=== PATIENT | male | born 1980 | race Hispanic/Latino ===

== ENCOUNTER 2019-11-25 20:18 | Emergency (ER) | payer SELFPAY ==
--- NOTE | 2019-11-25 21:34 | Event Note ---
ED Screening Note Date of service: 11/25/19 Time: 21:31 ED Screening Note: pt is 39 y/o male presents for detox, racing thought, flight of idea, AH, pos drug use. This initial assessment/diagnostic orders/clinical plan/treatment(s) is/are subject to change based on patients health status, clinical progression and re- assessment by fellow clinical providers in the ED. Further treatment and workup at subsequent clinical providers discretion. Patient/guardian urged not to elope from the ED as their condition may be serious if not clinically assessed and managed. Initial orders include: pysch protocol. main side
[2019-11-25 22:38] LABS: Basophils # (Auto) 0.1 K/mm3 (0.0-0.1); Eosinophils # (Auto) 0.2 K/mm3 (0.0-0.4); Eosinophils % (Auto) 2.4 % (0.0-4.3); Hematocrit 40.1 % (35.5-45.6); Hemoglobin 13.3 gm/dl (11.8-15.2); Lymphocytes # (Auto) 3.5 K/mm3 (1.2-5.4); Lymphocytes % (Auto) 40.2 % (13.4-35.0); Mean Corpuscular HGB Conc 33 % (32-34); Mean Corpuscular Volume 94 fl (84-94); Monocytes # (Auto) 0.8 K/mm3 (0.0-0.8); Monocytes % (Auto) 9.6 % (0.0-7.3); Platelet Count 282 K/mm3 (140-440); Red Blood Count 4.25 M/mm3 (3.65-5.03); Red Cell Distribution Width 13.7 % (13.2-15.2)
[2019-11-25 22:53] LABS: Alanine Aminotransferase 9 units/L (7-56); Albumin 4.2 g/dL (3.9-5); BUN/Creatinine Ratio 19; Blood Urea Nitrogen 15 mg/dL (9-20); Hemolysis Index 54
--- NOTE | 2019-11-25 22:53 | Emergency Department Report ---
ED General Adult HPI - General Chief complaint: Psych Stated complaint: MH EVAL/HALLUCINATIONS Time Seen by Provider: 11/25/19 22:10 Source: patient Mode of arrival: Ambulatory Limitations: No Limitations - History of Present Illness Initial comments: The patient presents to the emergency department with a chief complaint of racing thoughts. Patient states she has a history of bipolar and he's hearing voices telling him to do drugs. Patient states he also wants detox from cocaine. Patient denies homicidal suicidal ideation. -: unknown Severity scale (0 -10): 0 Improves with: none Worsens with: none Associated Symptoms: denies other symptoms Treatments Prior to Arrival: none - Related Data Home Medications Medication Instructions Recorded Confirmed Last Taken No Known Home Medications [No 11/26/19 11/26/19 Unknown Reported Home Medications] Allergies Allergy/AdvReac Type Severity Reaction Status Date / Time No Known Allergies Allergy Unverified 11/25/19 21:34 ED Review of Systems ROS: Stated complaint: MH EVAL/HALLUCINATIONS Other details as noted in HPI Constitutional: denies: chills, fever Eyes: denies: eye pain, eye discharge, vision change ENT: denies: ear pain, throat pain Respiratory: denies: cough, shortness of breath, wheezing Cardiovascular: denies: chest pain, palpitations Endocrine: no symptoms reported Gastrointestinal: denies: abdominal pain, nausea, diarrhea Genitourinary: denies: urgency, dysuria Musculoskeletal: denies: back pain, joint swelling, arthralgia Skin: denies: rash, lesions Neurological: denies: headache, weakness, paresthesias Psychiatric: auditory hallucinations. denies: anxiety, depression, homicidal thoughts, suicidal thoughts Hematological/Lymphatic: denies: easy bleeding, easy bruising ED Past Medical Hx - Past Medical History Previous Medical History?: Yes Hx Psychiatric Treatment: Yes (Bipolar, Chemical Imbalance) - Surgical History Past Surgical History?: Yes Additional Surgical History: Tonsillectomy - Social History Smoking Status: Current Every Day Smoker Substance Use Type: Alcohol, Cocaine, Heroin, Marijuana, Methamphetamines - Medications Home Medications: Home Medications Medication Instructions Recorded Confirmed Last Taken Type No Known Home Medications [No 11/26/19 11/26/19 Unknown History Reported Home Medications] ED Physical Exam - General Limitations: No Limitations General appearance: alert, in no apparent distress, other (tangential speech and flight of ideas) - Head Head exam: Present: atraumatic, normocephalic - Eye Eye exam: Present: normal appearance - ENT ENT exam: Present: mucous membranes moist - Neck Neck exam: Present: normal inspection - Respiratory Respiratory exam: Present: normal lung sounds bilaterally. Absent: respiratory distress - Cardiovascular Cardiovascular Exam: Present: regular rate, normal rhythm. Absent: systolic murmur, diastolic murmur, rubs, gallop - GI/Abdominal GI/Abdominal exam: Present: soft, normal bowel sounds. Absent: distended, tenderness - Rectal Rectal exam: Present: deferred - Extremities Exam Extremities exam: Present: normal inspection - Back Exam Back exam: Present: normal inspection - Neurological Exam Neurological exam: Present: alert, oriented X3, CN II-XII intact. Absent: motor sensory deficit - Psychiatric Psychiatric exam: Present: normal affect, normal mood - Skin Skin exam: Present: warm, dry, intact, normal color. Absent: rash ED Course Vital Signs 11/25/19 11/26/19 20:58 02:14 Temperature 98.0 F 98.9 F Pulse Rate 94 H 93 H Respiratory 18 18 Rate Blood Pressure 134/54 Blood Pressure 100/68 [Left] O2 Sat by Pulse 100 96 Oximetry ED Medical Decision Making - Lab Data Result diagrams: 11/25/19 21:52 11/25/19 21:52 Lab Results 11/25/19 11/25/19 11/25/19 Range/Units 21:52 21:52 21:52 WBC 8.6 (4.5-11.0) K/mm3 RBC 4.25 (3.65-5.03) M/mm3 Hgb 13.3 (11.8-15.2) gm/dl Hct 40.1 (35.5-45.6) % MCV 94 (84-94) fl MCH 31 (28-32) pg MCHC 33 (32-34) % RDW 13.7 (13.2-15.2) % Plt Count 282 (140-440) K/mm3 Lymph % (Auto) 40.2 H (13.4-35.0) % [place] % (Auto) 9.6 H (0.0-7.3) % Eos % (Auto) 2.4 (0.0-4.3) % Baso % (Auto) 1.0 (0.0-1.8) % Lymph # 3.5 (1.2-5.4) K/mm3 [place] # 0.8 (0.0-0.8) K/mm3 Eos # 0.2 (0.0-0.4) K/mm3 Baso # 0.1 (0.0-0.1) K/mm3 Seg Neutrophils % 46.8 (40.0-70.0) % Seg Neutrophils # 4.0 (1.8-7.7) K/mm3 Sodium 135 L (137-145) mmol/L Potassium 4.7 (3.6-5.0) mmol/L Chloride 100.7 (98-107) mmol/L Carbon Dioxide 25 (22-30) mmol/L Anion Gap 14 mmol/L BUN 15 (9-20) mg/dL Creatinine 0.8 (0.8-1.5) mg/dL Estimated GFR > 60 ml/min BUN/Creatinine Ratio 19 % Glucose 109 H (75-100) mg/dL Calcium 9.0 (8.4-10.2) mg/dL Total Bilirubin 0.20 (0.1-1.2) mg/dL AST 17 (5-40) units/L ALT 9 (7-56) units/L Alkaline Phosphatase 68 (35-129) units/L Total Protein 6.7 (6.3-8.2) g/dL Albumin 4.2 (3.9-5) g/dL Albumin/Globulin Ratio 1.7 % Urine Color (Yellow) Urine Turbidity (Clear) Urine pH (5.0-7.0) Ur Specific [place] (1.003-1.030) Urine Protein (Negative) mg/dL Urine Glucose (UA) (Negative) mg/dL Urine Ketones (Negative) mg/dL Urine Blood (Negative) Urine Nitrite (Negative) Urine Bilirubin (Negative) Urine Urobilinogen (<2.0) mg/dL Ur Leukocyte Esterase (Negative) Urine WBC (Auto) Urine RBC (Auto) (0.0-6.0) /HPF Urine Mucus /HPF Salicylates < 0.3 L (2.8-20.0) mg/dL Urine Opiates Screen Urine Methadone Screen Acetaminophen (10.0-30.0) ug/mL Ur Barbiturates Screen Ur Phencyclidine Scrn Ur Amphetamines Screen U Benzodiazepines Scrn Urine Cocaine Screen U Marijuana (THC) Screen Drugs of Abuse Note Plasma/Serum Alcohol (0-0.07) % 11/25/19 11/25/19 11/25/19 Range/Units 21:52 21:52 22:10 WBC (4.5-11.0) K/mm3 RBC (3.65-5.03) M/mm3 Hgb (11.8-15.2) gm/dl Hct (35.5-45.6) % MCV (84-94) fl MCH (28-32) pg MCHC (32-34) % RDW (13.2-15.2) % Plt Count (140-440) K/mm3 Lymph % (Auto) (13.4-35.0) % [place] % (Auto) (0.0-7.3) % Eos % (Auto) (0.0-4.3) % Baso % (Auto) (0.0-1.8) % Lymph # (1.2-5.4) K/mm3 [place] # (0.0-0.8) K/mm3 Eos # (0.0-0.4) K/mm3 Baso # (0.0-0.1) K/mm3 Seg Neutrophils % (40.0-70.0) % Seg Neutrophils # (1.8-7.7) K/mm3 Sodium (137-145) mmol/L Potassium (3.6-5.0) mmol/L Chloride (98-107) mmol/L Carbon Dioxide (22-30) mmol/L Anion Gap mmol/L BUN (9-20) mg/dL Creatinine (0.8-1.5) mg/dL Estimated GFR ml/min BUN/Creatinine Ratio % Glucose (75-100) mg/dL Calcium (8.4-10.2) mg/dL Total Bilirubin (0.1-1.2) mg/dL AST (5-40) units/L ALT (7-56) units/L Alkaline Phosphatase (35-129) units/L Total Protein (6.3-8.2) g/dL Albumin (3.9-5) g/dL Albumin/Globulin Ratio % Urine Color Yellow (Yellow) Urine Turbidity Clear (Clear) Urine pH 6.0 (5.0-7.0) Ur Specific [place] 1.012 (1.003-1.030) Urine Protein <15 mg/dl (Negative) mg/dL Urine Glucose (UA) Neg (Negative) mg/dL Urine Ketones Neg (Negative) mg/dL Urine Blood Neg (Negative) Urine Nitrite Neg (Negative) Urine Bilirubin Neg (Negative) Urine Urobilinogen < 2.0 (<2.0) mg/dL Ur Leukocyte Esterase Neg (Negative) Urine WBC (Auto) Not Reportable Urine RBC (Auto) 1.0 (0.0-6.0) /HPF Urine Mucus Few /HPF Salicylates (2.8-20.0) mg/dL Urine Opiates Screen Urine Methadone Screen Acetaminophen < 5.0 L (10.0-30.0) ug/mL Ur Barbiturates Screen Ur Phencyclidine Scrn Ur Amphetamines Screen U Benzodiazepines Scrn Urine Cocaine Screen U Marijuana (THC) Screen Drugs of Abuse Note Plasma/Serum Alcohol < 0.01 (0-0.07) % 11/25/19 Range/Units 22:10 WBC (4.5-11.0) K/mm3 RBC (3.65-5.03) M/mm3 Hgb (11.8-15.2) gm/dl Hct (35.5-45.6) % MCV (84-94) fl MCH (28-32) pg MCHC (32-34) % RDW (13.2-15.2) % Plt Count (140-440) K/mm3 Lymph % (Auto) (13.4-35.0) % [place] % (Auto) (0.0-7.3) % Eos % (Auto) (0.0-4.3) % Baso % (Auto) (0.0-1.8) % Lymph # (1.2-5.4) K/mm3 [place] # (0.0-0.8) K/mm3 Eos # (0.0-0.4) K/mm3 Baso # (0.0-0.1) K/mm3 Seg Neutrophils % (40.0-70.0) % Seg Neutrophils # (1.8-7.7) K/mm3 Sodium (137-145) mmol/L Potassium (3.6-5.0) mmol/L Chloride (98-107) mmol/L Carbon Dioxide (22-30) mmol/L Anion Gap mmol/L BUN (9-20) mg/dL Creatinine (0.8-1.5) mg/dL Estimated GFR ml/min BUN/Creatinine Ratio % Glucose (75-100) mg/dL Calcium (8.4-10.2) mg/dL Total Bilirubin (0.1-1.2) mg/dL AST (5-40) units/L ALT (7-56) units/L Alkaline Phosphatase (35-129) units/L Total Protein (6.3-8.2) g/dL Albumin (3.9-5) g/dL Albumin/Globulin Ratio % Urine Color (Yellow) Urine Turbidity (Clear) Urine pH (5.0-7.0) Ur Specific [place] (1.003-1.030) Urine Protein (Negative) mg/dL Urine Glucose (UA) (Negative) mg/dL Urine Ketones (Negative) mg/dL Urine Blood (Negative) Urine Nitrite (Negative) Urine Bilirubin (Negative) Urine Urobilinogen (<2.0) mg/dL Ur Leukocyte Esterase (Negative) Urine WBC (Auto) Urine RBC (Auto) (0.0-6.0) /HPF Urine Mucus /HPF Salicylates (2.8-20.0) mg/dL Urine Opiates Screen Presumptive negative Urine Methadone Screen Presumptive negative Acetaminophen (10.0-30.0) ug/mL Ur Barbiturates Screen Presumptive negative Ur Phencyclidine Scrn Presumptive negative Ur Amphetamines Screen Presumptive negative U Benzodiazepines Scrn Presumptive negative Urine Cocaine Screen Presumptive negative U Marijuana (THC) Screen Presumptive negative Drugs of Abuse Note Disclamer Plasma/Serum Alcohol (0-0.07) % - Medical Decision Making Medically cleared Awaiting mental health evaluation Critical care attestation.: If time is entered above; I have spent that time in minutes in the direct care of this critically ill patient, excluding procedure time. ED Disposition Clinical Impression: Auditory hallucinations Disposition: [id number]/TX-65 PSY HOSP/PSY UNIT Is pt being admited?: No Does the pt Need Aspirin: No Condition: Stable
[2019-11-25 23:08] LABS: Bilirubin,Urine NEG (Negative); Blood,Urine NEG (Negative); Color,Urine Yellow (Yellow); Mucus,Urine FEW /HPF; Protein,Urine <15 mg/dL mg/dL (Negative); Urobilinogen,Urine < 2.0 mg/dL (<2.0)
[2019-11-25 23:14] LABS: Amphetamine Screen,Urine PRESUMPTIVE NEGATIVE; Benzodiazepines Screen,Urine PRESUMPTIVE NEGATIVE; Cannabinoid Screen,Urine PRESUMPTIVE NEGATIVE; Cocaine Screen,Urine PRESUMPTIVE NEGATIVE; Methadone Screen,Urine PRESUMPTIVE NEGATIVE; Opiate Screen,Urine PRESUMPTIVE NEGATIVE
[2019-11-26] MEDS ORDERED: NICOTINE 21 MG/24 HR PATCH TD ONE (10:07)
[2019-11-26] MEDS ORDERED: LORazepam 1 MG TAB PO ONE (11:16)
[2019-11-26] MEDS ORDERED: IBUPROFEN 800 MG TAB PO ONE (14:21)
[2019-11-26] MEDS ORDERED: hydrOXYzine PAMOATE 25 MG CAP PO ONE (17:02)
[2019-11-26] MEDS ORDERED: ZIPRASIDONE MESYLATE 20 MG VIAL IM ONE (17:43)
[2019-11-27] MEDS ORDERED: ZIPRASIDONE MESYLATE 20 MG VIAL IM ONE ×4 (10:04→19:14)
--- NOTE | 2019-11-27 15:45 | Consultation ---
History of Present Illness - Reason for Consult Consult date: 11/27/19 Reason for consult: psychiatric assessment - Chief Complaint Chief complaint: Mr. Avilez is a 39-year-old male the patient is alert and oriented 2. The patient is disheveled. Eye contact Piercing. the patient stated he [facility] because he was hearing voices telling him to hurt himself. He then stated I was trying to get people out the [facility].when asked what intermediate the patient reported "here". The patient speech is fast and loquacious.the patient denies suicidal or homicidal ideations. The patient reports hearing voices, he reported the voices just talking. The patient then states, "I would like to go back to the hospital where joce paredes was".The patient is noted with flight of ideas and word salad. Attention and concentration impaired.patient reported that he hasn't taken medication for years he has not seen a psychiatric doctor in years. When asked about depression patient stated "I can kill my eyes". PAST PSYCHIATRIC HISTORY: Diagnoses: delusion and psychosis Suicide attempts or Self-harm behavior:denies Prior psychiatric hospitalizations: yes Substance Abuse history:yes Previous psychiatric medications tried: Depakote, clonazepam Outpatient treatment:yes PAST MEDICAL HISTORY: Family Psychiatric History grand-father SOCIAL HISTORY Marital Status: single Living Arrangements:family Employment Status: unemployed Access to guns/weapons: no Education: 11th History of Abuse: denies Legal History:yes REVIEW OF SYSTEMS Constitutional: Negative for weight loss ENT: Negative for stridor Respiratory: Negative for cough or hemoptysis All other systems reviewed and are negative MSE Appearance: disheved, piercing eye contact Behavior: tense and cooperative. Mood: "ok" Affect: blunted Thought Process: Illogical shifting between unrelated topics Speech: pressured Thought Content Harmfulness Denies SI/HI Hallucinations: patient denies Delusions: grandiose Consciousness: alert. Cognition/Memory: normal. Insight/Judgment: Limited. RECOMMENDATIONS MEDICATIONS: start depakote 250mg bid start risperidone 1mg bid start trazadone 50mg prn qhs start haldol 5mg prn agitation Risks, benefits and alternatives of medications discussed with the patient, questions answered and consent obtained from patient. PSYCHOTHERAPY: Supportive psychotherapy provided MEDICAL: Per primary team DELIRIUM PRECAUTIONS: Please re-orient patient frequently, keep lights on during the day, and minimize benzodiazepines and opiates as these medications could worsen patient's confusion. 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: DISPOSITION: The patient required inpatient hospitalization for safety and stabilization of symptoms LEGAL STATUS:1013 FOLLOW-UP: Will follow Medications and Allergies Allergies Allergy/AdvReac Type Severity Reaction Status Date / Time No Known Allergies Allergy Unverified 11/25/19 21:34 Home Medications Medication Instructions Recorded Confirmed Last Taken Type No Known Home Medications [No 11/26/19 11/26/19 Unknown History Reported Home Medications] Mental Status Exam - Vital signs Last Vital Signs Temp 98.0 F 11/27/19 15:07 Pulse 102 H 11/27/19 15:07 Resp 20 11/27/19 15:07 BP 140/72 11/27/19 15:07 Pulse Ox 98 11/27/19 15:07 Results Result Diagrams: 11/25/19 21:52 11/25/19 21:52 All other labs normal.
[2019-11-27] MEDS ORDERED: HALOPERIDOL LACTATE 5 MG/1 ML INJ IM PRN (16:22)
[2019-11-27] MEDS: traZODone 50 MG TAB PO SCH (22:20)
[2019-11-27] MEDS: DIVALPROEX DR 250 MG TAB PO SCH (22:20)
[2019-11-27] MEDS: risperiDONE 1 MG TAB PO SCH (22:20)
[2019-11-28] MEDS: DIVALPROEX DR 250 MG TAB PO SCH ×2 (10:49→22:28)
[2019-11-28] MEDS: risperiDONE 1 MG TAB PO SCH ×2 (10:49→22:28)
--- NOTE | 2019-11-28 14:19 | Progress Note ---
Subjective - Reason for Consult Consult date: 11/28/19 Reason for consult: psychiatric assessment - Chief Complaint Chief complaint: I interviewed the patient this morning. Medical records reviewed and patient's progress was discussed with unit staff. per chart awake standing on the front door, constant movements noted. no signs of respiratory distress In my interview with the patient this morning, the patient was asleep but easily aroused. The patient is alert and oriented 2. The patient is disheveled. The patient maintain minimal eye contact. The patient noted drowsy. The patient denies suicidal or homicidal ideation the patient continues to hear voices of people just talking. The patient denies visual hallucination. The patient remain disorganized and confused. Patient still noted with flight of ideas and word salad, attention, concentration limited. REVIEW OF SYSTEMS Constitutional: Negative for weight loss ENT: Negative for stridor Respiratory: Negative for cough or hemoptysis All other systems reviewed and are negative MSE Appearance: disheved, limited eye contact Behavior: calm and cooperative. Mood: "ok" Affect: blunted Thought Process: Illogical shifting between unrelated topics Speech: pressured Thought Content Harmfulness Denies SI/HI Hallucinations: patient denies Delusions: grandiose Consciousness: alert. Cognition/Memory: normal. Insight/Judgment: Limited. RECOMMENDATIONS MEDICATIONS: continue depakote 250mg bid risperidone 1mg bid trazadone 50mg prn qhs haldol 5mg prn agitation Risks, benefits and alternatives of medications discussed with the patient, questions answered and consent obtained from patient. PSYCHOTHERAPY: Supportive psychotherapy provided MEDICAL: Per primary team DELIRIUM PRECAUTIONS: Please re-orient patient frequently, keep lights on during the day, and minimize benzodiazepines and opiates as these medications could worsen patient's confusion. 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
[2019-11-28] MEDS: traZODone 50 MG TAB PO SCH (22:28)
[2019-11-29] MEDS: risperiDONE 1 MG TAB PO SCH ×2 (11:00→22:00)
[2019-11-29] MEDS: DIVALPROEX DR 250 MG TAB PO SCH ×2 (11:00→22:00)
--- NOTE | 2019-11-29 14:26 | Progress Note ---
Subjective - Reason for Consult Consult date: 11/29/19 Reason for consult: psychiatric assessment - Chief Complaint Chief complaint: I interviewed the patient this morning. Medical records reviewed and patient's progress was discussed with unit staff. per chart Received report from Toña RN, pt resting quietly on recliner, resp even and non labored, no acute distress noted, no behaviors or s/s of self harm noted, ambulates to restroom without difficulty In my interview with the patient this morning, the patient is alert and oriented x1. The patient denies suicidal or homicidal ideation the patient reports that he does hear voices here and there. He does report depression, patient stated I'm supposed to be a doctor at [facility], and then need to be discharged to go there. 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 The patient then start whispering and saying "I don't want anyone to know but I got [place] [employer] [place] and I work with the [employer]".The patient remained disorganized and confused REVIEW OF SYSTEMS Constitutional: Negative for weight loss ENT: Negative for stridor Respiratory: Negative for cough or hemoptysis All other systems reviewed and are negative MSE Appearance: disheved, limited eye contact Behavior: calm and cooperative. Mood: "ok" Affect: blunted Thought Process: Illogical shifting between unrelated topics Speech: pressured Thought Content Harmfulness Denies SI/HI Hallucinations: patient denies Delusions: grandiose Consciousness: alert. Cognition/Memory: impaired Insight/Judgment: Limited. RECOMMENDATIONS MEDICATIONS: continue depakote 250mg bid risperidone 1mg bid trazadone 50mg prn qhs haldol 5mg prn agitation Risks, benefits and alternatives of medications discussed with the patient, questions answered and consent obtained from patient. PSYCHOTHERAPY: Supportive psychotherapy provided MEDICAL: Per primary team DELIRIUM PRECAUTIONS: Please re-orient patient frequently, keep lights on during the day, and minimize benzodiazepines and opiates as these medications could worsen patient's confusion. 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
[2019-11-29] MEDS: traZODone 50 MG TAB PO SCH (22:00)
[2019-11-29] MEDS ORDERED: risperiDONE 0.25 MG TAB ONE (22:57)
[2019-11-30 01:52] VITALS: BP 111/44
== END 2019-11-30 06:00 ==
LOC: EEVIPCON 20:18 → ED 20:18
DX: F31.9 Bipolar disorder, unspecified (principal); F17.200 Nicotine dependence, unspecified, uncomplicated; F14.10 Cocaine abuse, uncomplicated; F12.10 Cannabis abuse, uncomplicated; F15.10 Other stimulant abuse, uncomplicated; Z90.89 Acquired absence of other organs
CPT/HCPCS: 36415; 80053; 80307; 81001; 85025; 96372; 99285; J1630; J3486; 80320; G0480; Q0177